=== PATIENT | male | born 1950 | race Asian ===

== ENCOUNTER 2020-11-14 13:30 | Emergency (ER) | payer MEDICARE ==
[~2020-11-14] VITALS: Ht 167.6 cm; Wt 91.2 kg
--- NOTE | 2020-11-14 14:43 | NUR ---
FOOD SUPERVISOR: PT TO ROOM FROM LOBBY
[2020-11-14 14:49] LABS: BASOPHILS % (AUTO) 1 % (0-1); EOSINOPHILS % (AUTO) 2 % (1-7); LYMPHOCYTES % (AUTO) 16 % (22-44); MEAN CORPUSCULAR HEMOGLOBIN 30.4 pg (27.5-34.5); MEAN CORPUSCULAR HGB CONC 32.9 g/dL (33.2-36.2); MEAN PLATELET VOLUME 7.9 fL (7.4-10.4); MONOCYTES % (AUTO) 7 % (2-9); NEUTROPHILS % (AUTO) 74 % (42-75); PLATELET COUNT 254 x10^3/uL (130-400); RED BLOOD COUNT 3.32 x10^6/uL (4.38-5.82); RED CELL DISTRIBUTION WIDTH 13.9 % (9.4-14.8)
--- NOTE | 2020-11-14 14:49 | NUR ---
REPORT TO MARIA ISABEL MAE
[2020-11-14 14:54] LABS: MD NO
[2020-11-14 14:59] LABS: ALBUMIN 3.5 g/dL (3.4-5.0); ANION GAP 6 mmol/L (5-15); CALCIUM 8.6 mg/dL (8.5-10.1); CHLORIDE 108 mmol/L (98-107)
[2020-11-14 15:02] LABS: ALANINE AMINOTRANSFERASE 30 U/L (12-78); ALKALINE PHOSPHATASE 72 U/L (45-117); BILIRUBIN,TOTAL 0.4 mg/dL (0.2-1.0); TOTAL PROTEIN 7.8 g/dL (6.4-8.2)
--- NOTE | 2020-11-14 16:09 | NUR ---
US FINISHED. PT RESTING IN ROOM NAD
[2020-11-14 16:12] VITALS: BP 170/99
== END 2020-11-14 16:36 | disposition home or self-care (01) ==
LOC: ED 15:08
DX: E11.22 Type 2 diabetes mellitus with diabetic chronic kidney disease (principal); I12.9 Hypertensive chronic kidney disease with stage 1 through stage 4 chronic kidney disease, or unspecified chronic kidney disease; N18.9 Chronic kidney disease, unspecified; R94.4 Abnormal results of kidney function studies; R00.0 Tachycardia, unspecified
CPT/HCPCS: 36415; 76770; 80053; 85025; 93005; 99285

== ENCOUNTER → 2021-04-25 | Outpatient (CLI) | payer MEDICARE | END | disposition home or self-care (01) | LOC: CVU 08:47 | PROVIDERS: ATTEND Student in an Organized Health Care Education/Training Program | DX: I08.0 Rheumatic disorders of both mitral and aortic valves (principal); I25.810 Atherosclerosis of coronary artery bypass graft(s) without angina pectoris; E11.22 Type 2 diabetes mellitus with diabetic chronic kidney disease; I12.9 Hypertensive chronic kidney disease with stage 1 through stage 4 chronic kidney disease, or unspecified chronic kidney disease; N18.9 Chronic kidney disease, unspecified; Z95.1 Presence of aortocoronary bypass graft | CPT/HCPCS: 93306 ==

== ENCOUNTER 2021-05-10 12:31 | Emergency (ER) | payer MEDICARE ==
[~2021-05-10] VITALS: Ht 167.6 cm; Wt 89.4 kg
[2021-05-10] MEDS ORDERED: ASPI-963 PO (13:18)
[2021-05-10] MEDS ORDERED: AMLO-150 PO (13:18)
[2021-05-10] MEDS ORDERED: [UNRECOGNIZED DRUG - OTHER] PO (13:18)
[2021-05-10] MEDS ORDERED: ISOS20TA58 PO (13:18)
[2021-05-10] MEDS ORDERED: HYDR100T25 PO (13:18)
--- NOTE | 2021-05-10 13:33 | NUR ---
late entry for 1333 d/t patient care: pt presents to ED stating from dialysis clinic with request for temp dialysis cath placement as dialysis fistula to left arm is not working. pt's last dialysis was two days ago. no bruit or thirll noted to fistula, cms intact to left arm. pt denies sob. pt is a&o, resps even and unlabored. nadn.
--- NOTE | 2021-05-10 14:30 | NUR ---
late entry for 1430: IR called, estimated time of pickup for IR dialysis cath is 1600. pt and informed. pt a&o, resps even and unlabored, nadn. no complaint at this time.
--- NOTE | 2021-05-10 15:35 | NUR ---
BREAK RN: PT VISITING WITH FAMILY AT BEDSIDE. NO ACUTE DISTRESS. CALL LIGHT IN PLACE. WILL CONTINUE TO MONITOR WHILE PRIMARY RN IS ON BREAK.
--- NOTE | 2021-05-10 15:35 | NUR ---
report given to chuckie gupta
--- NOTE | 2021-05-10 15:54 | NUR ---
BREAK RN: PT IN IR
--- NOTE | 2021-05-10 16:16 | NUR ---
REPORT GIVEN TO CARMELITA FERNANDES AND CARMELITA ANTHONY
--- NOTE | 2021-05-10 16:20 | NUR ---
REPORT TAKEN FROM CARMELITA SELLERS PT IN IR.
[2021-05-10] MEDS ORDERED: LIDOCAINE-MPF 1%, 5ML ONE ×2 (16:33)
[2021-05-10] MEDS ORDERED: LIDOCAINE 1%, 20ML ONE (16:33)
--- NOTE | 2021-05-10 16:52 | NUR ---
pt remains in IR
[2021-05-10 17:49] VITALS: BP 164/83
--- NOTE | 2021-05-10 18:00 | NUR ---
pt returned from IR, no procedural sedation used in IR. pt is a&o, resps even and unlabored. requests fingerstick as he has not eaten all day, fsbs 71. pt declines snack or juice, states he has a sandwich in car. pt a&o, resps even and unlabored. temp dialysis cath to right chest, dressing cdi. pt given dc instructions, ambulatory to dc desk with steady gait. all questions answered.
== END 2021-05-10 18:07 | disposition home or self-care (01) ==
LOC: ED 13:35
DX: T82.590A Other mechanical complication of surgically created arteriovenous fistula, initial encounter (principal); I12.0 Hypertensive chronic kidney disease with stage 5 chronic kidney disease or end stage renal disease; N18.6 End stage renal disease; E11.22 Type 2 diabetes mellitus with diabetic chronic kidney disease; Z87.891 Personal history of nicotine dependence; Z99.2 Dependence on renal dialysis; Y82.9 Unspecified medical devices associated with adverse incidents
CPT/HCPCS: 36558; 76937; 82962; 99285; C1750; C1894; J1642; J3490

== ENCOUNTER 2021-05-12 12:48 | Emergency (ER) | payer MEDICARE ==
[~2021-05-12] VITALS: Ht 167.6 cm; Wt 88.4 kg
[~2021-05-12 12:48] MED LIST: AMLO-150 PO; ASPI-963 PO; HYDR100T25 PO; ISOS20TA58 PO; [UNRECOGNIZED DRUG - OTHER] PO
[2021-05-12 13:01] VITALS: BP 162/84
== END 2021-05-12 13:48 | disposition home or self-care (01) ==
LOC: ED 13:40
DX: L03.114 Cellulitis of left upper limb (principal); I10 Essential (primary) hypertension; E11.9 Type 2 diabetes mellitus without complications; Z99.2 Dependence on renal dialysis
CPT/HCPCS: 99283

== ENCOUNTER 2021-06-03 12:05 | Day surgery (SDC) | payer MEDICARE ==
[~2021-06-03] VITALS: Ht 167.6 cm; Wt 86.2 kg
[2021-06-03] MEDS ORDERED: CHLORHEXIDINE 15 ML UDC PO ONE (13:00)
[2021-06-03] MEDS ORDERED: SODIUM CHLORIDE 0.9% 1,000 ML IV SCH (13:00)
[2021-06-03 13:24] VITALS: BP 155/94
[2021-06-03 13:26] LABS: BASOPHILS % (AUTO) 1 % (0-1); EOSINOPHILS % (AUTO) 2 % (1-7); LYMPHOCYTES % (AUTO) 23 % (22-44); MEAN CORPUSCULAR HEMOGLOBIN 31.9 pg (27.5-34.5); MEAN CORPUSCULAR HGB CONC 32.6 g/dL (33.2-36.2); MEAN PLATELET VOLUME 7.3 fL (7.4-10.4); MONOCYTES % (AUTO) 11 % (2-9); NEUTROPHILS % (AUTO) 63 % (42-75); PLATELET COUNT 284 x10^3/uL (130-400); RED BLOOD COUNT 3.09 x10^6/uL (4.38-5.82); RED CELL DISTRIBUTION WIDTH 16.2 % (9.4-14.8)
[2021-06-03 13:35] LABS: ANION GAP 5 mmol/L (5-15); CALCIUM 9.2 mg/dL (8.5-10.1); CHLORIDE 98 mmol/L (98-107); CREATININE 5.04 mg/dL (0.7-1.3)
[2021-06-03] MEDS ORDERED: HEPARIN 5,000 UNITS/ML, 1ML ONE (14:07)
[2021-06-03] MEDS ORDERED: THROMBIN (RECOMBINANT) 5,000 UNIT VIAL TP ONE (14:07)
[2021-06-03] MEDS ORDERED: BUPIVACAINE/PF 0.25% ONE (14:07)
[2021-06-03] MEDS ORDERED: LIDOCAINE/PF 1%, 30ML ONE (14:07)
[2021-06-03] MEDS ORDERED: PAPAVERINE 30 MG/ML, 2ML ONE (14:07)
[2021-06-03] MEDS ORDERED: MIDAZOLAM 1 MG/ML, 2ML ONE (14:19)
[2021-06-03] MEDS ORDERED: FENTANYL PF 100 MCG/2ML ONE (14:19)
[2021-06-03] MEDS ORDERED: PHENYLEPHRINE 10 MG/ML ONE (14:28)
[2021-06-03] MEDS ORDERED: DEXAMETHASONE 4 MG/ML, 1ML ONE (14:28)
[2021-06-03] MEDS ORDERED: HEPARIN 5,000 UNITS/ML, 1ML SQ ONE (14:47)
[2021-06-03] MEDS ORDERED: BUPIVACAINE/PF 0.25% INFIL ONE (14:48)
[2021-06-03] MEDS ORDERED: HEPARIN 1,000 UNITS/ML, 10ML ONE (14:50)
[2021-06-03] MEDS ORDERED: LABETALOL 5MG/ML, 20ML IV PRN (15:00)
[2021-06-03] MEDS ORDERED: MEPERIDINE/PF 25MG/0.5ML IVPush PRN (15:00)
[2021-06-03] MEDS ORDERED: PROMETHAZINE 25 MG/ML, 1ML IVPush PRN (15:00)
[2021-06-03] MEDS ORDERED: OXYcodone 5 MG/5 ML ORAL.SOL UDC PO PRN (15:00)
[2021-06-03] MEDS ORDERED: FENTANYL PF 100 MCG/2ML IV PRN (15:00)
[2021-06-03] MEDS ORDERED: ACETAMINOPHEN 325 MG TABLET PO PRN (15:00)
[2021-06-03] MEDS ORDERED: ALBUTEROL SULFATE 2.5 MG/3 ML NPPB PRN (15:00)
[2021-06-03] MEDS ORDERED: HYDROmorphone 1 MG/ML, 1ML INJ IVPush PRN (15:00)
[2021-06-03] MEDS ORDERED: MIDAZOLAM 1 MG/ML, 2ML IV PRN (15:00)
[2021-06-03] MEDS ORDERED: LIDOCAINE-MPF 2% ,5ML ONE (15:10)
[2021-06-03] MEDS ORDERED: ONDANSETRON 2MG/ML, 2ML ONE (15:11)
[2021-06-03] MEDS ORDERED: PROPOFOL 10 MG/ML, 20ML ONE (15:11)
[2021-06-03] MEDS ORDERED: CEFAZOLIN 1,000 MG ONE (15:11)
[2021-06-03] MEDS ORDERED: ACETAMINOPHEN 650 MG/20.3 ML UDC ONE (15:55)
== END 2021-06-03 17:30 | disposition home or self-care (01) ==
LOC: OUT 12:05
PROVIDERS: ATTEND Surgery
DX: E11.22 Type 2 diabetes mellitus with diabetic chronic kidney disease (principal); I12.0 Hypertensive chronic kidney disease with stage 5 chronic kidney disease or end stage renal disease; N18.6 End stage renal disease; I25.10 Atherosclerotic heart disease of native coronary artery without angina pectoris; G47.33 Obstructive sleep apnea (adult) (pediatric); Z20.822 Contact with and (suspected) exposure to COVID-19; Z79.891 Long term (current) use of opiate analgesic; Z79.899 Other long term (current) drug therapy; Z88.5 Allergy status to narcotic agent; Z90.49 Acquired absence of other specified parts of digestive tract; Z95.5 Presence of coronary angioplasty implant and graft; Z96.653 Presence of artificial knee joint, bilateral; Z99.2 Dependence on renal dialysis; Z82.49 Family history of ischemic heart disease and other diseases of the circulatory system; Z83.3 Family history of diabetes mellitus
CPT/HCPCS: 36821; 80048; 82962; 85025; 87635; 93005; J0690; J1100; J1644; J2250; J2370; J2405; J2704; J3010; J7030; J2440

== ENCOUNTER 2021-07-25 13:34 | Emergency (ER) | payer MEDICARE, MEDICAID ==
[~2021-07-25] VITALS: Ht 167.6 cm; Wt 87.0 kg
--- NOTE | 2021-07-25 13:44 | NUR ---
ERMD AT BEDSIDE FOR EVALUATION.
--- NOTE | 2021-07-25 13:51 | NUR ---
BIB EMS WITH NEAR SYNCOPAL EPISODE EARLIER TODAY. PATIENT REMEMBERS EVERYTHING, NO TOTAL LOSS OF CONSCIOUSNESS. NO C/O CHEST PAIN OR SOB PER EMS. 18 GAUGE IV STARTED RAC EN ROUTE. UPON ASSESSMENT PATIENT HAS NO COMPLAINTS, DENIES FEELING DIZZY, NO CHEST PAIN OR SOB. CONNECTED TO MONITOR, PATIENT IS HYPOTENSIVE, ERMD AWARE, OTHER VSS, CALL LIGHT WITHIN REACH.
--- NOTE | 2021-07-25 13:53 | NUR ---
RECEIVED REPORT FROM TATE MAE. TRANSFER OF CARE.
[2021-07-25] MEDS ORDERED: ALBUTEROL SULFATE 2.5 MG/3 ML NPPB ONE (14:00)
--- NOTE | 2021-07-25 14:08 | NUR ---
PT RESTING ON GURNEY RESP EVEN AND UNLABORED NADN, VSS NO NEEDS AT THIS TIME. A&OX4, PT WATCHING TV.
[2021-07-25] MEDS ORDERED: ALBUTEROL SULFATE 2.5 MG/3 ML ONE (14:13)
[2021-07-25 14:22] LABS: BASOPHILS % (AUTO) 1 % (0-1); EOSINOPHILS % (AUTO) 3 % (1-7); LYMPHOCYTES % (AUTO) 29 % (22-44); MEAN CORPUSCULAR HEMOGLOBIN 32.1 pg (27.5-34.5); MEAN CORPUSCULAR HGB CONC 32.4 g/dL (33.2-36.2); MEAN PLATELET VOLUME 7.7 fL (7.4-10.4); MONOCYTES % (AUTO) 9 % (2-9); NEUTROPHILS % (AUTO) 58 % (42-75); PLATELET COUNT 221 x10^3/uL (130-400); RED BLOOD COUNT 3.03 x10^6/uL (4.38-5.82); RED CELL DISTRIBUTION WIDTH 18.1 % (9.4-14.8)
[2021-07-25 14:30] LABS: ANION GAP 7 mmol/L (5-15); CALCIUM 9.4 mg/dL (8.5-10.1); CHLORIDE 95 mmol/L (98-107); CREATININE 6.87 mg/dL (0.7-1.3)
[2021-07-25] MEDS ORDERED: SODIUM CHLORIDE 0.9% 1,000ML IVBOLUS ONE (14:30)
[2021-07-25] MEDS ORDERED: SODIUM CHLORIDE FLUSH 10ML SYR IVF ONE (15:00)
--- NOTE | 2021-07-25 15:17 | NUR ---
PT VITALS DOING A LOT BETTER. BP INCREASED AND SP02 97% ON RA
--- NOTE | 2021-07-25 17:33 | NUR ---
PT AMBULATED DOWN HALLWAY WITH FWW WITH STEADY GAIT. PT TOLERATED VERY WELL ON ROOM AIR. PT PASSED ROADTEST. AWAITING D/C PT STATES HE USES FWW AT HOME.
[2021-07-25 17:34] VITALS: BP 126/66
--- NOTE | 2021-07-25 18:15 | NUR ---
Patient/Caregiver given discharge instructions and they have confirmed that they understand the instructions. Patient WHEELCGHAIRED OUT. NAD, all questions answered appropriately, denies additional needs at this time. No personal belongings left in room after discharge.
== END 2021-07-25 18:16 | disposition home or self-care (01) ==
LOC: ED 13:45
DX: I95.9 Hypotension, unspecified (principal); R55 Syncope and collapse; I10 Essential (primary) hypertension; E11.9 Type 2 diabetes mellitus without complications; R06.2 Wheezing
CPT/HCPCS: 36415; 80048; 82040; 85025; 94640; 99283; J7030; J7613